=== PATIENT | male | born 1935 | race Two or more races ===

== ENCOUNTER 2017-04-19 12:28 | Outpatient (CLI) | payer MEDICARE, BC | END 2017-04-19 23:59 | disposition home or self-care (01) | LOC: WOU 12:28 | PROVIDERS: ATTEND Surgery | DX: M19.042 Primary osteoarthritis, left hand (principal); M19.041 Primary osteoarthritis, right hand; R26.81 Unsteadiness on feet; Z87.891 Personal history of nicotine dependence; E11.22 Type 2 diabetes mellitus with diabetic chronic kidney disease; I12.9 Hypertensive chronic kidney disease with stage 1 through stage 4 chronic kidney disease, or unspecified chronic kidney disease; N18.9 Chronic kidney disease, unspecified; Z79.4 Long term (current) use of insulin; Z85.46 Personal history of malignant neoplasm of prostate; Z96.653 Presence of artificial knee joint, bilateral; I25.10 Atherosclerotic heart disease of native coronary artery without angina pectoris; Z95.5 Presence of coronary angioplasty implant and graft | CPT/HCPCS: G0463 ==